=== PATIENT | male | born 1970 | race Caucasian/White ===

== ENCOUNTER 2018-04-13 14:07 | Emergency (ER) | payer BC ==
[~2018-04-13] VITALS: Ht 177.8 cm; Wt 72.6 kg
--- NOTE | ~2018-04-13 | EKG ---
[place], [place] ELECTROCARDIOGRAM REPORT NAME: CHRISTIANO UREÑA UNIT #: [id number] ROOM: DOCTOR: JAYJAY DRAFT REPORT BIRTHDATE: [birth year] [facility] Test Date: 2018-04-13 Test Time: 14:44:02 Pat Name: CHRISTIANO UREÑA Department: Room: Gender: Multimedia Editor: 19 : 1970 Requested By: MARIA LUISA MALDONADO Order Number: [id number] Reading MD: Cassandra Herron MD Measurements Intervals [place] Rate: 103 P: 32 KS: 128 QRS: -43 QRSD: 90 T: 14 QT: 330 QTc: 432 Interpretive Statements Sinus tachycardia Left axis deviation Abnormal R-wave progression, late transition Electronically Signed On 04-18-2018 13:47:42 PDT by Cassandra Herron MD CM:EKGRPT:ELECTROCARDIOGRAM REPORT [id number] MARIA LUISA RO DRAFT REPORT MARIA LUISA MALDONADO MD
[~2018-04-13 14:07] MED LIST: ATARAX25 MG PO; ATOXIMETIN-B1 CAP; BACTRIM DS 8001 TA1 PO; BACTROBAN OINT22 GM T; CIPRO500 MG PO; CLARITIN10 MG PO; CLINDAMYCIN HC300 MG PO; CLINDAMYCIN150 MG PO; DOXYCYCLINE MO100 MG PO; FLEXERIL10 MG PO; HYDROCODONE BIT1 T11 PO; KEFLEX500 MG PO; MEDROL DOSEPAK4 MG PO; MOTRIN800 MG PO; MULTIPLE VITAMI1 CTB PO; PHENERGAN W/DM120 ML PO; PREDNISONE10 MG PO; PREDNISONE20 MG PO; SEPTRA DS 800 M1 TAB PO; ZITHROMAX Z PA250 MG PO; ZYRTEC10 M2 PO
[2018-04-13 14:55] LABS: BASO # 0.1 10*3/uL (0.0-0.1); BASO % 0.6 % (0.0-1.0); EOS # 0.1 10*3/uL (0.0-0.4); EOS % 0.8 % (1.0-4.0); HEMATOCRIT 43.7 % (42.0-52.0); HEMOGLOBIN 14.8 g/dl (14.0-18.0); LYMPH # 1.1 10*3/uL (1.3-4.4); LYMPH % 9.8 % (27.0-41.0); MEAN CELL VOLUME 89.9 fl (80.0-94.0); MEAN CORPUSCULAR HGB 30.5 pg (27.0-31.0); MEAN CORPUSCULAR HGB CONC 33.9 g/dl (33.0-37.0); MEAN PLATELET VOLUME 10.9 fl (9.6-12.3); MONO # 0.9 10*3/uL (0.1-1.0); MONO % 8.4 % (3.0-9.0); NEUT # 8.5 10*3/uL (2.3-7.9); NEUT % 79.8 % (47.0-73.0); PLATELET COUNT AUTOMATED 236 10*3/uL (130-400); RED BLOOD COUNT 4.86 10*6/uL (4.50-5.90); RED CELL DISTRI WIDTH 12.5 % (0-14.5); WHITE BLOOD COUNT 10.7 10*3/uL (4.8-10.8)
[2018-04-13 14:58] LABS: ACT PARTIAL THROMBO TIME 25.5 SECONDS (20.8-31.5); INTERNATIONAL NORM RATIO 0.9 (2.0-3.5)
[2018-04-13 15:04] LABS: BILIRUBIN NEGATIVE (NEGATIVE); BLOOD TRACE-INTACT (NEGATIVE); CLARITY CLEAR (CLEAR); COLOR YELLOW (YELLOW); GLUCOSE NEGATIVE (NEGATIVE); KETONE NEGATIVE (NEGATIVE); LEUKO ESTERASE NEGATIVE (NEGATIVE); NITRITE NEGATIVE (NEGATIVE); SPECIFIC GRAVITY 1.015 (1.005-1.030); UROBILINOGEN 0.2 E.U./dl (0.2-1.0)
[2018-04-13 15:04] LABS: ALBUMIN 3.8 gm/dl (3.1-4.5); ALKALINE PHOSPHATASE 65 U/L (45-117); BUN 9 mg/dl (7-24); CHLORIDE 106 mmol/L (98-107); CREATININE 0.92 mg/dL (0.70-1.30); POTASSIUM 4.3 mmol/L (3.5-5.1); SGOT/AST 14 IU/L (3-35); SGPT/ALT 19 U/L (12-78); SODIUM 138 mmol/L (136-145); TOTAL PROTEIN 7.4 gm/dL (6.4-8.2)
[2018-04-13 15:05] LABS: TROPONIN I < 0.015 ng/ml (<0.045)
[2018-04-13 15:12] LABS: BACTERIA 1+; EPITHELIAL CELLS 0-2; RBC 16-20 rbc/hpf (0-2); WBC 0-2 wbc/hpf (0-5)
== END 2018-04-13 16:29 | disposition home or self-care (01) ==
LOC: ED 14:07
PROVIDERS: Emergency Medicine
DX: J02.8 Acute pharyngitis due to other specified organisms (principal); Z79.899 Other long term (current) drug therapy

== ENCOUNTER 2019-12-26 13:00 | Emergency (ER) | payer SELFPAY ==
[~2019-12-26] VITALS: Ht 177.8 cm; Wt 72.6 kg
[2019-12-26 14:31] LABS: BASO # 0.1 10*3/uL (0.0-0.1); BASO % 0.6 % (0.0-1.0); EOS % 0.2 % (1.0-4.0); HEMATOCRIT 44.5 % (42.0-52.0); LYMPH # 1.3 10*3/uL (1.3-4.4); LYMPH % 14.8 % (27.0-41.0); MEAN CELL VOLUME 90.1 fl (80.0-94.0); MEAN CORPUSCULAR HGB 30.6 pg (27.0-31.0); MEAN CORPUSCULAR HGB CONC 33.9 g/dl (33.0-37.0); MEAN PLATELET VOLUME 10.6 fl (9.6-12.3); MONO # 0.9 10*3/uL (0.1-1.0); MONO % 10.5 % (3.0-9.0); NEUT # 6.4 10*3/uL (2.3-7.9); NEUT % 73.7 % (47.0-73.0); PLATELET COUNT AUTOMATED 230 10*3/uL (130-400); RED BLOOD COUNT 4.94 10*6/uL (4.50-5.90); RED CELL DISTRI WIDTH 12.2 % (0-14.5); WHITE BLOOD COUNT 8.7 10*3/uL (4.8-10.8)
[2019-12-26 14:46] LABS: ALBUMIN 3.8 gm/dl (3.1-4.5); ALKALINE PHOSPHATASE 68 U/L (45-117); BUN 7 mg/dl (7-24); CHLORIDE 105 mmol/L (98-107); CREATININE 0.84 mg/dL (0.70-1.30); POTASSIUM 4.1 mmol/L (3.5-5.1); SGOT/AST 28 IU/L (3-35); SGPT/ALT 36 U/L (12-78); SODIUM 136 mmol/L (136-145)
[2019-12-26] MEDS ORDERED: SEPTDS PO (19:40)
== END 2019-12-26 19:45 | disposition home or self-care (01) ==
LOC: ED 13:00
PROVIDERS: Emergency Medicine
DX: J32.9 Chronic sinusitis, unspecified (principal); L02.415 Cutaneous abscess of right lower limb; F17.200 Nicotine dependence, unspecified, uncomplicated; Z79.899 Other long term (current) drug therapy

== ENCOUNTER 2022-05-12 10:28 | Emergency (ER) | payer OTHER ==
[~2022-05-12] VITALS: Ht 177.8 cm; Wt 72.6 kg
[~2022-05-12 10:28] MED LIST changes: +SEPTDS PO
== END 2022-05-12 11:21 | disposition home or self-care (01) ==
LOC: ED 10:28
DX: S61.217A Laceration without foreign body of left little finger without damage to nail, initial encounter (principal); Z79.899 Other long term (current) drug therapy; W22.8XXA Striking against or struck by other objects, initial encounter; Y93.89 Activity, other specified; Y92.89 Other specified places as the place of occurrence of the external cause; Y99.8 Other external cause status

== ENCOUNTER 2023-07-05 06:18 | Emergency (ER) | payer OTHER ==
[~2023-07-05] VITALS: Ht 177.8 cm; Wt 72.6 kg
== END 2023-07-05 07:39 | disposition home or self-care (01) ==
LOC: ED 06:18
DX: B34.9 Viral infection, unspecified (principal); Z72.0 Tobacco use; Z20.822 Contact with and (suspected) exposure to COVID-19

== ENCOUNTER 2023-07-15 05:58 | Emergency (ER) | payer OTHER ==
[~2023-07-15] VITALS: Ht 177.8 cm; Wt 72.6 kg
[2023-07-15] MEDS ORDERED: AMOXICILLIN500 M2 PO (06:35)
== END 2023-07-15 06:46 | disposition home or self-care (01) ==
LOC: ED 05:58
DX: J03.90 Acute tonsillitis, unspecified (principal); Z72.0 Tobacco use

== ENCOUNTER 2023-07-22 06:03 | Emergency (ER) | payer OTHER ==
[~2023-07-22] VITALS: Ht 177.8 cm; Wt 78.5 kg
[~2023-07-22 06:03] MED LIST changes: +AMOXICILLIN500 M2 PO
== END 2023-07-22 07:14 | disposition home or self-care (01) ==
LOC: ED 06:03
DX: J03.90 Acute tonsillitis, unspecified (principal); F17.210 Nicotine dependence, cigarettes, uncomplicated